=== PATIENT | female | born 1955 | race Caucasian/White ===

== ENCOUNTER 2025-05-02 14:19 | Inpatient (IN) | payer MEDICARE, OTHER ==
[~2025-05-02] VITALS: Ht 162.6 cm; Wt 52.6 kg
[2025-05-02 14:48] LABS: PLATELET COUNT (AUTO) 235 K/uL (150-450); RED BLOOD CELL COUNT(AUTO) 3.96 MIL/uL (4.0-5.2); RED CELL DISTRIBUTION WIDTH 13.4 % (11.5-15.0); WHITE BLOOD COUNT (AUTO) 5.8 K/uL (4.3-11.0)
[2025-05-02 14:57] LABS: CALCIUM, SERUM 9.3 mg/dL (8.5-10.1); CREATININE 0.7 mg/dL (0.6-1.3); SODIUM SERUM 144.0 mmol/L (136-145); UREA NITROGEN, BLOOD 16.0 mg/dL (7-18)
[2025-05-02 15:13] LABS: INR 0.99 (0.91-1.10)
[2025-05-02 16:07] VITALS: O2SAT 96
[2025-05-02 20:00] VITALS: BP 146/76; TEMP 99; O2SAT 99
[2025-05-02] MEDS: QUETIAPINE FUMARATE 25 MG TABLET PO SCH (21:14)
[2025-05-02] MEDS: HYDROCODONE/APAP 10/325MG TABLET PO PRN (22:06)
[2025-05-03 08:28] VITALS: BP 156/80; TEMP 97.5; O2SAT 99
[2025-05-03] MEDS ORDERED: Z GUARD REMEDY 4 OZ OINT TP PRN (09:00)
[2025-05-03] MEDS ORDERED: ONDANSETRON HCL/PF 4 MG/2 ML VIAL IVP PRN (09:00)
[2025-05-03] MEDS ORDERED: ACETAMINOPHEN 325 MG TABLET PO PRN (09:00)
[2025-05-03] MEDS: LOSARTAN POTASSIUM 50 MG TABLET PO SCH (09:29)
[2025-05-03] MEDS: ENOXAPARIN SODIUM 40 MG/0.4 ML DISP.SYRIN SQ SCH (09:30)
[2025-05-03] MEDS: IV 1/2NS 1000 ML 1,000 ML IV PRN (09:47)
[2025-05-03 15:00] VITALS: BP 135/77; O2SAT 98
[2025-05-03 20:00] VITALS: BP 151/100; TEMP 98.1; O2SAT 99
[2025-05-04 08:00] VITALS: BP 146/90; TEMP 98.2; O2SAT 100
[2025-05-04] MEDS: PANTOPRAZOLE 40 MG TABLET.DR PO SCH (09:55)
[2025-05-04 16:00] VITALS: BP 159/96; TEMP 97.9; O2SAT 97
[2025-05-04 16:55] LABS: PLATELET COUNT (AUTO) 274 K/uL (150-450); RED BLOOD CELL COUNT(AUTO) 4.59 MIL/uL (4.0-5.2); RED CELL DISTRIBUTION WIDTH 13.3 % (11.5-15.0); WHITE BLOOD COUNT (AUTO) 7.9 K/uL (4.3-11.0)
[2025-05-04 17:27] LABS: APPEARANCE,URINE CLEAR (CLEAR); BLOOD, URINE 3+ Ery/uL (NEGATIVE); LEUKOCYTE ESTERASE ,URINE NEGATIVE (NEGATIVE); NITRITE, URINE NEGATIVE (NEGATIVE); UGLUCOSE NEGATIVE (NEGATIVE)
[2025-05-04 17:48] LABS: ADD URINE CULTURE YES; SQUAMOUS EPITHELIAL CELL,UR Moderate /HPF (None Seen)
[2025-05-04 17:51] LABS: CALCIUM, SERUM 9.6 mg/dL (8.5-10.1); PHOSPHORUS 2.0 mg/dL (2.5-4.9); SODIUM SERUM 140.0 mmol/L (136-145); UREA NITROGEN, BLOOD 14.0 mg/dL (7-18)
[2025-05-04 18:12] LABS: CREATININE 0.7 mg/dL (0.6-1.3)
[2025-05-04 20:00] VITALS: BP 153/98; TEMP 98.2; O2SAT 99
[2025-05-04] MEDS: MUPIROCIN OINT 2% 22 GM TUBE NS SCH (21:01)
[2025-05-05] MEDS: POTASSIUM CHLORIDE 10 MEQ TABLET.SA PO ONE (01:11)
[2025-05-05 08:00] VITALS: BP 150/100; TEMP 98.2; O2SAT 99
[2025-05-05] MEDS: LORAZEPAM 1 MG TABLET PO PRN (15:58)
[2025-05-05 18:22] VITALS: BP 162/98
[2025-05-05] MEDS: CLONIDINE HCL 0.1 MG TABLET PO ONE (18:22)
== END 2025-05-05 19:30 | DRG 640 ==
LOC: EDBD 14:24 → ER 14:24 → MED 17:19
PROVIDERS: ADMIT Nurse Practitioner Family; ATTEND Nurse Practitioner Family
DX: R62.7 Adult failure to thrive (principal); G93.41 Metabolic encephalopathy; F41.9 Anxiety disorder, unspecified; I10 Essential (primary) hypertension; Z74.01 Bed confinement status; G89.29 Other chronic pain; F29 Unspecified psychosis not due to a substance or known physiological condition; Z87.828 Personal history of other (healed) physical injury and trauma
CPT/HCPCS: 36415; 71045-TC; 76700-TC; 80048-TC; 81001; 83735-TC; 84100-TC; 85025-TC; 85730-TC; 87081-TC; 87086-TC; A4223; G0378; J1650; J3490